=== PATIENT | female | born 1990 | race Caucasian/White ===

== ENCOUNTER → 2020-04-13 10:14 | Outpatient (CLI) | payer OTHER, SELFPAY ==
--- NOTE | ~2020-04-13 | US_ITS ---
EXAMINATION: US OB >= 14 weeks Fetus DATE: 04/13/2020 11:03 INDICATION: Second trimester anatomic survey TECHNIQUE: Real-time ultrasound of the pelvis was performed. COMPARISON: None. FINDINGS: There is a single living fetus in vertex presentation. The placenta is anterior. heart rate is 138 beats per minute (bpm). cardiac activity and movement are noted. The amniotic fluid index is subjectively normal. The following anatomy was identified as normal: 4 chamber heart 3 vessel cord cord insertion kidneys urinary bladder stomach spine diaphragm ventricles cisterna magna cerebellum The following biometric data were obtained: Biparietal diameter (BPD): 5.0 cm; head circumference (HC): 18.8 cm; abdominal circumference (AC): 16 .4 cm; femur length (FL): 3.3 cm. These measurements are concordant. Estimated weight is 398 g +/- 59 g, which correlates with the 81st percentile when 08/28/2020 is used as estimated date of delivery. As single measurements, these parameters are each equal to the following estimated gestational ages w ith ranges of +/- 2 standard deviations: BPD: 21 weeks 2 days ( 19 weeks 4 days - 23 weeks 0 days). HC: 21 weeks 1 days ( 19 weeks 4 days - 22 weeks 4 days). AC: 21 weeks 3 days ( 19 weeks 3 days - 23 weeks 4 days). FL: 20 weeks 4 days ( 18 weeks 6 days - 22 weeks 3 days). estimated gestational age based solely on measurements from this exam is 21 weeks 1 days +/- 1 weeks 3 days. IMPRESSION: 1. Single living fetus in vertex presentation. 2. Estimated weight is 398 g +/- 59 g, which correlates with the 81st percentile when 08/28/2020 is used as estimated date of delivery. Reviewed, dictated and finalized at location A. IMPRESSION: 1. Single living fetus in vertex presentation. 2. Estimated weight is 398 g +/- 59 g, which correlates with the 81st per centile when 08/28/2020 is used as estimated date of delivery.
== END ==
PROVIDERS: Visit Provider Obstetrics & Gynecology Gynecologic Oncology
DX: Z36.9 Encounter for antenatal screening, unspecified (principal)
CPT/HCPCS: 76805

== ENCOUNTER → 2021-04-23 12:48 | Outpatient (CLI) | payer OTHER, SELFPAY ==
--- NOTE | ~2021-04-23 | US_ITS ---
EXAMINATION: US OB /maternal detail DATE: 04/23/2021 13:24 INDICATION: Second trimester anatomic survey TECHNIQUE: Real-time ultrasound of the pelvis was performed. COMPARISON: None. FINDINGS: There is a single living fetus in vertex presentation. The placenta is anterior and 6 cm from the int ernal cervical os. heart rate is 143 beats per minute (bpm). cardiac activity and movement are noted. The amniotic fluid index is subjectively normal. The following anatomy was identified as normal: 4 chamber heart 3 vessel cord cord insertion kidneys urinary bladder stomach spine diaphragm ventricles cisterna magna cerebellum The following biometric data were obtained: Biparietal diameter (BPD): 5.0 cm; head circumference (HC): 18.6 cm; abdominal circumference (AC): 16 .3 cm; femur length (FL): 3.4 cm. These measurements are concordant. Estimated weight is 400 g +/- 60 g, which correlates with the 51st percentile when 09/02/2021 is used as estimated date of delivery. As single measurements, these parameters are each equal to the following estimated gestational ages w ith ranges of +/- 2 standard deviations: BPD: 21 weeks 2 days ( 19 weeks 4 days - 23 weeks 0 days). HC: 21 weeks 0 days ( 19 weeks 3 days - 22 weeks 3 days). AC: 21 weeks 3 days ( 19 weeks 2 days - 23 weeks 3 days). FL: 20 weeks 6 days ( 19 weeks 0 days - 22 weeks 4 days). estimated gestational age based solely on measurements from this exam is 21 weeks 1 days +/- 1 weeks 3 days. IMPRESSION: 1. Single living fetus in vertex presentation. 2. Estimated weight is 400 g +/- 60 g, which correlates with the 51st percentile when 09/02/2021 is used as estimated date of delivery. Reviewed, dictated and finalized at location A. IMPRESSION: 1. Single living fetus in vertex presentation. 2. Estimated weight is 400 g +/- 60 g, which correlates with the 51st per centile when 09/02/2021 is used as estimated date of delivery.
== END ==
PROVIDERS: Visit Provider Obstetrics & Gynecology
DX: Z36.9 Encounter for antenatal screening, unspecified (principal)
CPT/HCPCS: 76805